=== PATIENT | male | born 1985 | race Caucasian/White ===

== ENCOUNTER 2021-06-10 15:44 | Emergency (ER) | payer OTHER ==
[~2021-06-10] VITALS: Ht 175.3 cm; Wt 97.3 kg
[2021-06-10 17:35] VITALS: BP 205/127; PULSE 100; TEMP 98.2
== END 2021-06-10 17:45 | disposition home or self-care (01) ==
LOC: COL.ER 15:44
DX: I10 Essential (primary) hypertension (principal); F41.9 Anxiety disorder, unspecified